=== PATIENT | male | born 1995 | race Caucasian/White ===

== ENCOUNTER 2022-07-31 11:16 | Emergency (ER) | payer BC ==
[~2022-07-31] VITALS: Ht 170.2 cm; Wt 88.9 kg
[2022-07-31] MEDS ORDERED: FentaNYL CITRATE PF 100 MCG/2 ML VIAL IVP ONE (13:00)
[2022-07-31] MEDS ORDERED: MIDAZOLAM HCL 5 MG/ML VIAL IVP ONE (13:00)
[2022-07-31 15:27] VITALS: BP 138/86
== END 2022-07-31 15:39 | disposition home or self-care (01) ==
LOC: EMS 11:19
DX: M24.411 Recurrent dislocation, right shoulder (principal); Z88.1 Allergy status to other antibiotic agents; Z88.5 Allergy status to narcotic agent
CPT/HCPCS: 99285; 23650; 73020; 73030; 99152; J3010; J2250; 96361; 96365; 96374; 96375; 99284